=== PATIENT | male | born 1970 | race Two or more races ===

== ENCOUNTER 2019-02-03 21:24 | Emergency (ER) | payer MEDICAID, OTHER ==
[~2019-02-03] VITALS: Ht 182.9 cm; Wt 72.7 kg
[~2019-02-03 21:24] MED LIST: ACET-1025; IBUP-1984 PO
[2019-02-03] MEDS ORDERED: TETanus/Pertussis (Acell)/Diphther VAC/PF (Tdap-Adult) 0.5ml syringe IM ONE (22:10)
[2019-02-03] MEDS ORDERED: naproxen 500mg tablet PO ONE (22:10)
[2019-02-03] MEDS ORDERED: HYDROcodone/acetaminophen 10/325mg tab PO ONE (22:10)
[2019-02-03] MEDS ORDERED: clindamycin 150mg capsule PO ONE (22:10)
[2019-02-03] MEDS ORDERED: LIDOcaine 1% W/epiNEPHrine 1:100,000 20ml vial IJ ONE (22:10)
[2019-02-03] MEDS ORDERED: CLIN150C2 PO (22:11)
[2019-02-04 00:55] VITALS: BP 106/56
== END 2019-02-04 01:15 ==
LOC: ER 21:24
DX: S11.81XA Laceration without foreign body of other specified part of neck, initial encounter (principal); S01.312A Laceration without foreign body of left ear, initial encounter; S01.311A Laceration without foreign body of right ear, initial encounter; S40.812A Abrasion of left upper arm, initial encounter; S40.811A Abrasion of right upper arm, initial encounter; Z88.0 Allergy status to penicillin; Z88.2 Allergy status to sulfonamides; W54.0XXA Bitten by dog, initial encounter; Y93.89 Activity, other specified; Y92.89 Other specified places as the place of occurrence of the external cause; Y99.9 Unspecified external cause status
CPT/HCPCS: 12014; 73060; 90471; 99284